=== PATIENT | male | born 1945 | race Caucasian/White ===

== ENCOUNTER 2016-11-19 08:07 | Day surgery (SDC) | payer MEDICARE, BC ==
[~2016-11-19] VITALS: Ht 167.6 cm; Wt 88.3 kg
--- NOTE | 2016-11-24 13:29 | OR ---
ADMIT: 11/19/2016 RM/LOC: [facility] MR#: [id number] [address] [id number] [place] [address] [place] [id number] Operative/Delivery Room Report SEX: M AGE: 70 : 1945 SURGERY DATE: 11/19/2016 SURGEON: Pankaj Dao MD PREOPERATIVE DIAGNOSES: 1. Chronic cholecystitis. 2. Biliary dyskinesia. POSTOPERATIVE DIAGNOSES: 1. Chronic cholecystitis. 2. Biliary dyskinesia. FINAL PATHOLOGY: Pending. PROCEDURE: Laparoscopic cholecystectomy. ANESTHESIA: General endotracheal tube anesthesia. CRUSHER OPERATOR: Marlyn Luna APRN NP who was necessary for adequate exposure, retraction, and completion of this case. ESTIMATED BLOOD LOSS: 20 mL. SPECIMEN: Gallbladder and contents to Pathology. INDICATION FOR PROCEDURE: Please see H and P. After the risks, benefits, possible complications, and the alternatives have been explained, and informed consent had been obtained, the patient was taken back to the operating room, underwent general endotracheal tube anesthesia, and the surgical field was prepped and draped in a sterile manner. I started off making a right upper quadrant incision, Veress needle was inserted. The abdomen was insufflated with CO2. I then placed a 5-mm port here, this was done because he has an incisional hernia to left of his umbilicus around a previous incision. Looking at that through the port site, you can see some of the omental fat stuck up in that hernia. I did not try to reduce it or do anything with it. Then I placed a 10 mm epigastric, two 5-mm right upper quadrant ports. The gallbladder definitely had some adhesions, these were all slowly cleaned down. Dissected out the cystic duct. 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 It was divided behind this. There was actually no other significant artery other than a small one that was running right along with the duct and it was clipped at that time. The gallbladder was then removed from the liver bed using electrocautery and Endo Elisha, placed in an EndoCatch bag and removed through the epigastric port site. Inspecting the liver bed, there was good hemostasis. I irrigated and removed as much irrigation as possible. I injected 0.5% Marcaine in the incision site for pain control. Closed the fascia of the epigastric port site with an 0-Polysorb suture using the suture passer. The skin was all closed with 4-0 Monocryl after the ports were removed. Tolerated procedure well, was extubated and taken to recovery room in stable and satisfactory condition. Pankaj Dao MD/ santhosh JOB #: [id number] CC: Pankaj Dao, Attending Physician Winston Perez, Family Physician
== END 2016-11-19 16:20 | disposition home or self-care (01) ==
LOC: SSS 08:07
PROC: 0FT44ZZ Resection of Gallbladder, Percutaneous Endoscopic Approach (ICD-10-PCS; principal; 2016-11-19)
DX: K82.4 Cholesterolosis of gallbladder (principal); I10 Essential (primary) hypertension; E78.5 Hyperlipidemia, unspecified; I25.10 Atherosclerotic heart disease of native coronary artery without angina pectoris; K21.9 Gastro-esophageal reflux disease without esophagitis; Z88.0 Allergy status to penicillin; Z88.1 Allergy status to other antibiotic agents; Z86.010 Personal history of colon polyps; Z90.49 Acquired absence of other specified parts of digestive tract; Z98.890 Other specified postprocedural states